=== PATIENT | male | born 1980 | race African-American/Black ===

== ENCOUNTER 2021-12-11 09:51 | Inpatient (IN) | payer BC ==
[2021-12-11 11:32] VITALS: BMI 24.1
[2021-12-11] MEDS ORDERED: METHOCARBAMOL 500 MG TABLET PO PRN (11:42)
[2021-12-11] MEDS ORDERED: IBUPROFEN 600 MG TABLET (FP) PO PRN (11:42)
[2021-12-11] MEDS ORDERED: MAGNESIUM HYDROX 2400MG/30ML ORAL SUSPENSION 30 ML CUP PO PRN (11:42)
[2021-12-11] MEDS ORDERED: NICOTINE 10 MG CARTRIDGE (INHALER) IH PRN (11:42)
[2021-12-11] MEDS ORDERED: BISMUTH SUBSALICYLATE 524 MG/30 ML PO PRN (11:42)
[2021-12-11] MEDS ORDERED: LOPERAMIDE HCL 2 MG CAPSULE PO PRN (11:42)
[2021-12-11] MEDS ORDERED: DICYCLOMINE HCL 10 MG CAPSULE PO PRN (11:42)
[2021-12-11] MEDS ORDERED: chlordiazePOXIDE HCL 25 MG CAPSULE PO PRN (11:42)
[2021-12-11] MEDS ORDERED: MAGNESIUM CITRATE 300 ML BOTTLE PO PRN (11:42)
[2021-12-11] MEDS ORDERED: BENZOCAINE/MENTHOL (CHLORASEPTIC ) LOZENGE MM PRN (11:42)
[2021-12-11] MEDS ORDERED: MAG HYDROX/AL HYDROX/SIMETH 30 ML UNIT-DOSE CUP PO PRN (11:42)
[2021-12-11] MEDS ORDERED: IBUPROFEN 400 MG TABLET (FP) PO PRN (11:42)
[2021-12-11] MEDS ORDERED: ACETAMINOPHEN 325 MG TABLET (FP) PO PRN ×2 (11:42)
[2021-12-11] MEDS ORDERED: ALBUTEROL SO4 HFA INHALER IH PRN (11:45)
[2021-12-11] MEDS: PRENATAL VITAMINS W/ FOLIC ACID TABLET (FP) PO SCH (12:30)
[2021-12-11] MEDS: chlordiazePOXIDE HCL 25 MG CAPSULE PO SCH ×3 (12:30→23:19)
[2021-12-11] MEDS: DIVALPROEX SODIUM 500 MG TABLET E.C. PO SCH ×2 (15:01→23:19)
[2021-12-11] MEDS: hydrOXYzine PAMOATE 25 MG CAPSULE (FP) PO SCH ×3 (15:01→23:19)
[2021-12-11 15:54] LABS: ALBUMIN 3.7 g/dl (3.4-5.0)
[2021-12-11 15:55] LABS: CALCIUM 9.5 mg/dL (8.5-10.1)
[2021-12-11 15:56] LABS: BLOOD UREA NITROGEN 9.1 mg/dL (7-18)
[2021-12-11 15:58] LABS: BILIRUBIN,TOTAL 0.6 mg/dL (0.2-1); TOT PROT 7.4 g/dl (6.4-8.2)
[2021-12-11 16:00] LABS: CREATININE 1.2 mg/dL (0.55-1.3)
[2021-12-11 16:10] LABS: HEMATOCRIT 49.9 % (35.4-49); MCH 28.2 pg (25.7-33.7); MCHC 32.1 g/dl (32.0-35.9); MEAN CELL VOLUME 87.7 fl (80-96); PLATELET COUNT 178 10^3/uL (134-434); RBC 5.69 M/mm3 (4.00-5.60); RDW 16.1 % (11.9-15.9); WHITE BLOOD COUNT 3.7 K/mm3 (4.0-10.0)
[2021-12-11] MEDS: THIAMINE HCL 100 MG TABLET (FP) PO SCH (23:19)
[2021-12-11] MEDS: MELATONIN 5 MG TABLETS PO SCH (23:19)
[2021-12-11] MEDS: levETIRAcetam 500 MG TABLET (FP) PO SCH (23:19)
[2021-12-12] MEDS: chlordiazePOXIDE HCL 25 MG CAPSULE PO SCH ×4 (07:16→23:00)
[2021-12-12] MEDS: hydrOXYzine PAMOATE 25 MG CAPSULE (FP) PO SCH ×5 (07:16→22:58)
[2021-12-12] MEDS: DIVALPROEX SODIUM 500 MG TABLET E.C. PO SCH ×2 (10:45→22:58)
[2021-12-12] MEDS: PRENATAL VITAMINS W/ FOLIC ACID TABLET (FP) PO SCH (10:45)
[2021-12-12] MEDS: levETIRAcetam 500 MG TABLET (FP) PO SCH ×2 (10:46→22:58)
[2021-12-12] MEDS ORDERED: PENICILLIN G BENZATHINE 2,400,000 UNIT/4 ML PFS IM ONE ×2 (13:25→18:00)
[2021-12-12] MEDS: ONDANSETRON *ODT* 4 MG TABLET SL PRN (18:39)
[2021-12-12] MEDS: MELATONIN 5 MG TABLETS PO SCH (22:59)
[2021-12-12] MEDS: THIAMINE HCL 100 MG TABLET (FP) PO SCH (22:59)
[2021-12-13] MEDS: chlordiazePOXIDE HCL 25 MG CAPSULE PO SCH ×4 (06:48→22:38)
[2021-12-13] MEDS: hydrOXYzine PAMOATE 25 MG CAPSULE (FP) PO SCH ×5 (06:48→22:38)
[2021-12-13] MEDS: levETIRAcetam 500 MG TABLET (FP) PO SCH ×2 (10:23→22:32)
[2021-12-13] MEDS: DIVALPROEX SODIUM 500 MG TABLET E.C. PO SCH ×2 (10:23→22:32)
[2021-12-13] MEDS: PRENATAL VITAMINS W/ FOLIC ACID TABLET (FP) PO SCH (10:24)
[2021-12-13] MEDS: ONDANSETRON *ODT* 4 MG TABLET SL PRN (19:16)
[2021-12-13] MEDS: MELATONIN 5 MG TABLETS PO SCH (22:37)
[2021-12-13] MEDS: THIAMINE HCL 100 MG TABLET (FP) PO SCH (22:38)
[2021-12-14] MEDS ORDERED: chlordiazePOXIDE HCL 10 MG CAPSULE PO PRN
[2021-12-14] MEDS: chlordiazePOXIDE HCL 10 MG CAPSULE PO SCH ×3 (06:25→18:58)
[2021-12-14] MEDS: hydrOXYzine PAMOATE 25 MG CAPSULE (FP) PO SCH ×4 (06:26→18:59)
[2021-12-14] MEDS: DIVALPROEX SODIUM 500 MG TABLET E.C. PO SCH (11:30)
[2021-12-14] MEDS: PRENATAL VITAMINS W/ FOLIC ACID TABLET (FP) PO SCH (11:30)
[2021-12-14] MEDS: levETIRAcetam 500 MG TABLET (FP) PO SCH (11:30)
[2021-12-15] MEDS: levETIRAcetam 500 MG TABLET (FP) PO SCH ×2 (00:46→10:34)
[2021-12-15] MEDS: MELATONIN 5 MG TABLETS PO SCH (00:46)
[2021-12-15] MEDS: chlordiazePOXIDE HCL 10 MG CAPSULE PO SCH (00:46)
[2021-12-15] MEDS: THIAMINE HCL 100 MG TABLET (FP) PO SCH (00:46)
[2021-12-15] MEDS: hydrOXYzine PAMOATE 25 MG CAPSULE (FP) PO SCH ×3 (00:46→10:34)
[2021-12-15] MEDS: DIVALPROEX SODIUM 500 MG TABLET E.C. PO SCH ×2 (00:46→10:34)
[2021-12-15] MEDS ORDERED: chlordiazePOXIDE HCL 10 MG CAPSULE PO SCH (05:00)
[2021-12-15 06:54] VITALS: PULSE 80
[2021-12-15 10:00] VITALS: BP 149/84; RESP 17; TEMP 98.4
[2021-12-15] MEDS: PRENATAL VITAMINS W/ FOLIC ACID TABLET (FP) PO SCH (10:34)
[2021-12-16] MEDS ORDERED: chlordiazePOXIDE HCL 10 MG CAPSULE PO ONE (05:00)
== END 2021-12-15 10:47 | disposition home or self-care (01) | DRG 775 ==
LOC: YASAS 09:51 → Y3N 11:43
PROVIDERS: ADMIT Allergy & Immunology; ATTEND Surgery
PROC: HZ2ZZZZ Detoxification Services for Substance Abuse Treatment (ICD-10-PCS; principal; 2021-12-11)
DX: F10.230 Alcohol dependence with withdrawal, uncomplicated (principal); F17.210 Nicotine dependence, cigarettes, uncomplicated; F31.9 Bipolar disorder, unspecified; F25.9 Schizoaffective disorder, unspecified; A53.9 Syphilis, unspecified; G40.909 Epilepsy, unspecified, not intractable, without status epilepticus; J45.20 Mild intermittent asthma, uncomplicated; E11.9 Type 2 diabetes mellitus without complications; Z79.84 Long term (current) use of oral hypoglycemic drugs; R07.9 Chest pain, unspecified
CPT/HCPCS: 36415; 80053; 80164; 80177; 82962; 85027; 86593; 86780; 93005; 93010; C9803-CS; Q0162; U0003; U0005

== ENCOUNTER 2022-06-13 13:24 | Inpatient (IN) | payer OTHER ==
[2022-06-13 14:19] VITALS: BMI 25.0
[2022-06-13] MEDS ORDERED: chlordiazePOXIDE HCL 25 MG CAPSULE PO PRN (19:04)
[2022-06-13] MEDS ORDERED: IBUPROFEN 400 MG TABLET (FP) PO PRN (19:05)
[2022-06-13] MEDS ORDERED: hydrOXYzine PAMOATE 25 MG CAPSULE (FP) PO PRN (19:05)
[2022-06-13] MEDS ORDERED: NALOXONE HCL (KLOXXADO) 8 MG SPRAY NS PRN (19:05)
[2022-06-13] MEDS ORDERED: NICOTINE 10 MG CARTRIDGE (INHALER) IH PRN (19:05)
[2022-06-13] MEDS ORDERED: MAG HYDROX/AL HYDROX/SIMETH 30 ML UNIT-DOSE CUP PO PRN (19:05)
[2022-06-13] MEDS ORDERED: DICYCLOMINE HCL 10 MG CAPSULE PO PRN (19:05)
[2022-06-13] MEDS ORDERED: IBUPROFEN 600 MG TABLET (FP) PO PRN (19:05)
[2022-06-13] MEDS ORDERED: ONDANSETRON *ODT* 4 MG TABLET SL PRN (19:05)
[2022-06-13] MEDS ORDERED: LOPERAMIDE HCL 2 MG CAPSULE PO PRN (19:05)
[2022-06-13] MEDS ORDERED: BISMUTH SUBSALICYLATE 524 MG/30 ML PO PRN (19:05)
[2022-06-13] MEDS ORDERED: BENZOCAINE/MENTHOL (CHLORASEPTIC ) LOZENGE MM PRN (19:05)
[2022-06-13] MEDS ORDERED: ACETAMINOPHEN 325 MG TABLET (FP) PO PRN (19:05)
[2022-06-13] MEDS: ACETAMINOPHEN 325 MG TABLET (FP) PO PRN (19:58)
[2022-06-13] MEDS: THIAMINE HCL 100 MG TABLET (FP) PO SCH (22:04)
[2022-06-13] MEDS: chlordiazePOXIDE HCL 25 MG CAPSULE PO SCH (22:04)
[2022-06-13] MEDS: MELATONIN 5 MG TABLETS PO SCH (22:05)
[2022-06-13] MEDS: METHOCARBAMOL 500 MG TABLET PO PRN (22:05)
[2022-06-14] MEDS: chlordiazePOXIDE HCL 25 MG CAPSULE PO SCH ×4 (06:04→22:35)
[2022-06-14] MEDS: ACETAMINOPHEN 325 MG TABLET (FP) PO PRN (11:23)
[2022-06-14 12:20] LABS: HEMATOCRIT 44.2 % (35.4-49); HEMOGLOBIN 14.1 GM/dL (11.7-16.9); MCH 27.6 pg (25.7-33.7); MCHC 31.9 g/dl (32.0-35.9); MEAN CELL VOLUME 86.4 fl (80-96); MEAN PLT VOLUME 9.2 fl (7.5-11.1); PLATELET COUNT 185 10^3/uL (134-434); RBC 5.12 M/mm3 (4.00-5.60); RDW 15.9 % (11.9-15.9); WHITE BLOOD COUNT 3.2 K/mm3 (4.0-10.0)
[2022-06-14 13:43] LABS: ALBUMIN 2.8 g/dl (3.4-5.0); BILIRUBIN,TOTAL 0.3 mg/dL (0.2-1); CALCIUM 8.1 mg/dL (8.5-10.1); CREATININE 0.9 mg/dL (0.55-1.3); TOT PROT 5.9 g/dl (6.4-8.2)
[2022-06-14] MEDS: METHOCARBAMOL 500 MG TABLET PO PRN (17:31)
[2022-06-14] MEDS: MELATONIN 5 MG TABLETS PO SCH (22:35)
[2022-06-14] MEDS: THIAMINE HCL 100 MG TABLET (FP) PO SCH (22:35)
[2022-06-15] MEDS: chlordiazePOXIDE HCL 25 MG CAPSULE PO SCH ×2 (06:09→10:31)
[2022-06-15] MEDS ORDERED: ALBUTEROL SO4 HFA INHALER IH PRN (09:35)
[2022-06-15] MEDS: levETIRAcetam 500 MG TABLET (FP) PO SCH ×2 (09:52→22:48)
[2022-06-15] MEDS ORDERED: LORazepam 1 MG TABLET PO PRN (16:33)
[2022-06-15] MEDS: LORazepam 2 MG TABLET PO SCH ×2 (17:35→23:23)
[2022-06-15] MEDS: ACETAMINOPHEN 325 MG TABLET (FP) PO PRN (19:27)
[2022-06-15] MEDS: THIAMINE HCL 100 MG TABLET (FP) PO SCH (22:48)
[2022-06-15] MEDS: MELATONIN 5 MG TABLETS PO SCH (23:23)
[2022-06-16] MEDS ORDERED: chlordiazePOXIDE HCL 10 MG CAPSULE PO PRN
[2022-06-16] MEDS ORDERED: LORazepam 0.5 MG TABLET PO PRN ×2 (00:01)
[2022-06-16] MEDS ORDERED: chlordiazePOXIDE HCL 10 MG CAPSULE PO SCH (05:00)
[2022-06-16] MEDS: LORazepam 1 MG TABLET PO SCH ×4 (05:57→22:33)
[2022-06-16] MEDS: levETIRAcetam 500 MG TABLET (FP) PO SCH ×2 (11:03→22:26)
[2022-06-16] MEDS: METHOCARBAMOL 500 MG TABLET PO PRN (14:57)
[2022-06-16] MEDS: ACETAMINOPHEN 325 MG TABLET (FP) PO PRN (19:33)
[2022-06-16] MEDS: THIAMINE HCL 100 MG TABLET (FP) PO SCH (22:34)
[2022-06-16] MEDS: MELATONIN 5 MG TABLETS PO SCH (22:34)
[2022-06-17] MEDS ORDERED: LORazepam 0.5 MG TABLET PO PRN
[2022-06-17] MEDS ORDERED: chlordiazePOXIDE HCL 10 MG CAPSULE PO SCH (05:00)
[2022-06-17 06:21] VITALS: TEMP 98
[2022-06-17] MEDS: LORazepam 0.5 MG TABLET PO SCH ×2 (06:28→06:32)
[2022-06-17 09:22] VITALS: BP 125/71; PULSE 82; RESP 18
[2022-06-17] MEDS: levETIRAcetam 500 MG TABLET (FP) PO SCH (09:29)
[2022-06-18] MEDS ORDERED: chlordiazePOXIDE HCL 10 MG CAPSULE PO ONE (05:00)
[2022-06-18] MEDS ORDERED: LORazepam 0.5 MG TABLET PO ONE (05:00)
== END 2022-06-17 09:53 | disposition home or self-care (01) | DRG 774 ==
LOC: YASAS 13:24 → Y6N 19:33
PROVIDERS: ADMIT Allergy & Immunology; ATTEND Surgery
PROC: HZ2ZZZZ Detoxification Services for Substance Abuse Treatment (ICD-10-PCS; principal; 2022-06-13)
DX: F10.230 Alcohol dependence with withdrawal, uncomplicated (principal); F14.20 Cocaine dependence, uncomplicated; F17.210 Nicotine dependence, cigarettes, uncomplicated; G40.909 Epilepsy, unspecified, not intractable, without status epilepticus; H91.93 Unspecified hearing loss, bilateral; J45.20 Mild intermittent asthma, uncomplicated; R73.9 Hyperglycemia, unspecified; Z86.19 Personal history of other infectious and parasitic diseases; R55 Syncope and collapse; S02.30XA Fracture of orbital floor, unspecified side, initial encounter for closed fracture; W01.198A Fall on same level from slipping, tripping and stumbling with subsequent striking against other object, initial encounter; Y92.231 Patient bathroom in hospital as the place of occurrence of the external cause
CPT/HCPCS: 36415; 80053; 83036; 85027; 86593; 86780; 87811; C9803-CS; Q0162; U0003; U0005

== ENCOUNTER 2022-06-16 06:39 | Emergency (ER) | payer OTHER ==
[2022-06-16 06:59] VITALS: RESP 18; BMI 26.9
[2022-06-16] MEDS ORDERED: ACETAMINOPHEN 1000 MG/100 ML BAG IVPB ONE (11:25)
[2022-06-16 11:56] LABS: BASO % 0.6 % (0-2.0); EOS % 1.3 % (0-4.5); HEMOGLOBIN 14.7 GM/dL (11.7-16.9); LYMPH % 17.9 % (8-40); MCH 28.1 pg (25.7-33.7); MCHC 32.6 g/dl (32.0-35.9); MEAN CELL VOLUME 86.2 fl (80-96); MEAN PLT VOLUME 8.8 fl (7.5-11.1); NEUT % 69.2 % (42.8-82.8); PLATELET COUNT 175 10^3/uL (134-434); RBC 5.22 M/mm3 (4.00-5.60); RDW 15.6 % (11.9-15.9); WHITE BLOOD COUNT 6.4 K/mm3 (4.0-10.0)
[2022-06-16 12:00] LABS: INR 0.96 (0.83-1.09); PROTHROMBIN TIME (PATIENT) 11.1 SEC (9.7-13.0)
[2022-06-16 12:03] LABS: ACTIVATED PTT 33.8 SECONDS (25.2-36.5)
[2022-06-16 12:14] LABS: ALBUMIN 3.1 g/dl (3.4-5.0); BLOOD UREA NITROGEN 9.2 mg/dL (7-18); CALCIUM 8.7 mg/dL (8.5-10.1); MAGNESIUM 1.9 mg/dL (1.8-2.4)
[2022-06-16 12:18] LABS: CREATININE 0.8 mg/dL (0.55-1.3)
[2022-06-16 12:19] LABS: BILIRUBIN,TOTAL 0.2 mg/dL (0.2-1); TOT PROT 6.7 g/dl (6.4-8.2)
[2022-06-16 13:58] VITALS: BP 129/86; PULSE 89; TEMP 98.1
== END 2022-06-16 14:00 | disposition home or self-care (01) ==
LOC: JER 06:39
DX: S02.82XA Fracture of other specified skull and facial bones, left side, initial encounter for closed fracture (principal); W19.XXXA Unspecified fall, initial encounter
CPT/HCPCS: 36415; 70450-TC; 70486-TC; 71046-TC-FY; 72125-TC; 80053; 83735; 84484; 85025; 85610; 85730; 93005; 93010; 99285-25